=== PATIENT | female | born 1950 | race Caucasian/White ===

== ENCOUNTER 2017-09-01 09:50 | Day surgery (SDC) | payer MEDICARE, MEDICAID ==
[2017-09-01] MEDS ORDERED: PROPOFOL 10 MG/ML VIAL IV ONE (09:51)
[2017-09-01] MEDS ORDERED: LIDOCAINE 2% MDV (20MG/ML) 20ML VIAL IV ONE (09:51)
--- NOTE | 2017-09-02 12:31 | Operative Note ---
DATE OF SURGERY: 09/01/2017 OPERATION: COLONOSCOPY to the cecum with cold snare polypectomy x1. INDICATION: Colorectal cancer screening. This is the patient's first examination. ANESTHESIA: Intravenous sedation was administered by the department of anesthesiology and included Diprivan titrated to effect. PROCEDURE: Following informed consent from this alert individual including a discussion of the risks and benefits of the procedure and an opportunity for the patient to ask questions, the patient was in the left lateral decubitus position. A digital rectal examination was performed. No abnormalities were palpable. Following this, the Olympus KYS127 video colonoscope was inserted into the rectum without resistance. The rectal mucosa had a flat polyp noted measuring 5-6 mm in size. It was ultimately removed with cold snare polypectomy and suctioned through the endoscope into a collection trap. Unfortunately, there was a fair amount of retained liquid and some semi-solid stool noted in the rectum as well. The colonoscope was then further advanced up through the to the level of the cecum. There was a fair amount of retained liquid and semi-solid noted throughout portions of the colon precluding a complete evaluation of the mucosa. The ileocecal valve was visualized. The appendiceal orifice was not seen due to the retained stool within the cecal pouch. From the level of the ileocecal valve, the colonoscope was then withdrawn. As visualized, no additional large polyps were seen; however, small polyps could have easily been missed due to the retained stool noted. The colonoscope was drawn back into the rectum were retroflexion accomplished following air insufflation again revealed retained stool. The endoscope was removed. The patient tolerated the procedure well and was returned to the recovery area in stable condition. IMPRESSION: 1. Poor preparation with a fair amount of retained stool throughout the colon in liquid and semi-solid form. Washing and suctioning was employed; however, visualization was poor. 2. A 5-6 mm rectal polyp removed with cold snare polypectomy. 3. Sigmoid diverticulosis. RECOMMENDATIONS: The patient was advised to have recheck colonoscopy in the next 2-3 months with additional colon preparation for better visualization. Followup will otherwise be with VESTA Hastings. As always, thank you for allowing me to participate in the care of your patient. CC: VESTA Hastings
== END 2017-09-01 12:44 | disposition home or self-care (01) ==
LOC: HOP 09:50
PROVIDERS: ATTEND Internal Medicine Gastroenterology
DX: Z12.11 Encounter for screening for malignant neoplasm of colon (principal); K62.1 Rectal polyp; I10 Essential (primary) hypertension